=== PATIENT | female | born 1970 | race Caucasian/White ===

== ENCOUNTER 2016-08-06 09:32 | Emergency (ER) | payer BC ==
[2016-08-06 10:47] VITALS: BP 133/79
--- NOTE | 2016-08-06 11:13 | UC ---
Throat Pain/Nasal Carter HPI - HPI Summary HPI Summary: 2 weeks of URI symptoms. Recent worsening in sinus pain/pressure. Bright green drainage. PND. FEels like multiple prior sinusitis episodes. Has had several ENT surgeries. No fever. NO vomiting. Cough is dwindling away, but now headache and facial pain - History of Current Complaint Chief Complaint: UCRespiratory Stated Complaint: SINUSES Time Seen by Provider: 08/06/16 10:56 Hx Obtained From: Patient Hx Last Menstrual Period: 07/12/16 Onset/Duration: Gradual Onset Severity: Moderate Cough: Productive Associated Signs & Symptoms: Positive: Dysphagia, Hoarseness, Sinus Discomfort, Nasal Discharge - Epiglottits Risk Factors Epiglottis Risk Factors: Negative - Allergies/Home Medications Allergies/Adverse Reactions: Allergies Allergy/AdvReac Type Severity Reaction Status Date / Time Amoxicillin Allergy Intermediate Hives Verified 08/06/16 10:38 Cefaclor [From Ceclor] Allergy Intermediate Rash Verified 08/06/16 10:38 Erythromycin Allergy Intermediate Hives Verified 08/06/16 10:38 Penicillins Allergy Intermediate Hives Verified 08/06/16 10:38 Bupropion [From Wellbutrin] Allergy Hives Verified 08/06/16 10:38 Celecoxib [From Celebrex] Allergy Hives Verified 08/06/16 10:38 Home Medications: Home Medications Mometasone NASAL (NF) [Nasonex (NF)] 2 spray NASAL ONCE PRN 08/06/16 [History Confirmed 08/06/16] Naproxen Sodium 440 mg PO BID PRN 08/06/16 [History Confirmed 08/06/16] PMH/Surg Hx/FS Hx/Imm Hx Endocrine History Of: Denies: Diabetes, Thyroid Disease Cardiovascular History Of: Reports: Hypertension Denies: Cardiac Disorders Respiratory History Of: Denies: COPD, Asthma GI/ History Of: Denies: Ulcer Cancer History Of: Denies: Breast Cancer - Surgical History Surgical History: Yes Surgery Procedure, Year, and Place: SINUS SURGERY 20 YEARS AGO, and 01/2013 - Family History Known Family History: Positive: Hypertension - Social History Occupation: Employed Full-time - social media community manager Lives: With Family Alcohol Use: Rare Substance Use Type: None Smoking Status (MU): Never Smoked Tobacco - Immunization History Most Recent Influenza Vaccination: not this season Review of Systems Constitutional: Negative Skin: Negative Eyes: Negative ENT: Sore Throat, Ear Ache, Nasal Discharge Respiratory: Cough - dry Cardiovascular: Negative Gastrointestinal: Negative Genitourinary: Negative Motor: Negative Neurovascular: Negative Musculoskeletal: Negative Neurological: Negative Psychological: Negative All Other Systems Reviewed And Are Negative: Yes Physical Exam Triage Information Reviewed: Yes Appearance: Well-Appearing, No Pain Distress, Well-Nourished Vital Signs: Initial Vital Signs Temp 98.5 F 08/06/16 10:42 Pulse 104 08/06/16 10:42 Resp 16 08/06/16 10:42 BP 133/79 08/06/16 10:42 Pulse Ox 100 08/06/16 10:42 Vital Signs Reviewed: Yes Eye Exam: Normal ENT: Positive: Hearing grossly normal, Pharyngeal erythema, Nasal congestion, TMs normal. Negative: Tonsillar swelling, Tonsillar exudate, Trismus, Muffled/ hoarse voice Neck exam: Normal Respiratory Exam: Normal Respiratory: Positive: Lungs clear, Normal breath sounds, No respiratory distress, No accessory muscle use Cardiovascular Exam: Normal Musculoskeletal Exam: Normal Neurological Exam: Normal Psychological Exam: Normal Skin Exam: Normal Throat Pain/Nasal Course/Dx - Differential Dx/Diagnosis Differential Diagnosis/HQI/PQRI: Pharyngitis, Sinusitis, URI Provider Diagnoses: sinusitis Discharge - Discharge Plan Condition: Stable Disposition: HOME Prescriptions: Cefdinir 300 mg PO BID #20 cap predniSONE TAB* [Deltasone TAB*] 20 mg PO DAILY #11 tab Patient Education Materials: Sinusitis (ED) Referrals: Timbo Morales MD [Primary Care Provider] -
== END 2016-08-06 11:56 | disposition home or self-care (01) ==
LOC: UCCORT 09:32
DX: J32.9 Chronic sinusitis, unspecified (principal); Z88.1 Allergy status to other antibiotic agents; Z88.0 Allergy status to penicillin; Z88.8 Allergy status to other drugs, medicaments and biological substances
CPT/HCPCS: 99212; G0463

== ENCOUNTER 2017-12-03 13:48 | Emergency (ER) | payer BC ==
[2017-12-03 15:37] VITALS: BP 125/79
--- NOTE | 2017-12-03 16:01 | UC ---
Skin Complaint HPI - HPI Summary HPI Summary: Patient was working in her yard just today last night she developed hives very itchy arms and legs she does not have any vesicles that she does have a lot of raised papules that are red on both of her arms and legs - History of Current Complaint Chief Complaint: UCRash Time Seen by Provider: 12/03/17 15:21 Stated Complaint: SKIN COMPLAINT Hx Obtained From: Patient Hx Last Menstrual Period: TODAY ?: No Onset/Duration: Sudden Onset, Lasting Days - 1, Still Present Skin Exposure Onset/Duration: Days Ago - 1 Timing: Constant Onset Severity: Moderate Current Severity: Moderate Location: Diffuse Character: Hives, Redness, Raised Aggravating Factor(s): Nothing Alleviating Factor(s): Other - Took 50 mg Benadryl last night without any relief was unable to sleep at all through the night Associated Signs & Symptoms: Positive: Rash Related History: Possible Reaction to: Environmental Exposure - Allergy/Home Medications Allergies/Adverse Reactions: Allergies Allergy/AdvReac Type Severity Reaction Status Date / Time amoxicillin Allergy Unknown Hives Verified 12/03/17 15:24 bupropion Allergy Unknown Hives Verified 12/03/17 15:24 cefaclor [From Ceclor] Allergy Unknown Hives Verified 12/03/17 15:24 celecoxib [From Celebrex] Allergy Unknown HIVES AND Verified 12/03/17 15:24 CONGESITON erythromycin base Allergy Unknown Hives Verified 12/03/17 15:24 Penicillins Allergy Unknown Hives Verified 12/03/17 15:24 Home Medications: Home Medications Betamethasone Dip 0.05% ON(NF) [Betamethasone Dipr 0.05% OINT(NF)] 1 applic .SEE ORDER 12/03/17 [History] Cetirizine* [ZyrTEC 10 MG TAB*] 10 mg PO DAILY 12/03/17 [History Confirmed 12/03] LevoCETirizine TAB (NF) [Xyzal TAB (NF)] 5 mg PO DAILY 12/03/17 [History Confirmed 12/03/17] Spironolactone TAB* [Aldactone TAB 25 MG*] 25 mg PO DAILY 12/03/17 [History Confirmed 12/03/17] diPHENhydraMINE PO* [Benadryl PO 25 MG TAB*] 25 mg PO Q6H PRN 12/03/17 [History Confirmed 12/03/17] Review of Systems Constitutional: Negative Skin: Rash Eyes: Negative ENT: Negative Respiratory: Negative Cardiovascular: Negative Gastrointestinal: Negative Genitourinary: Negative Motor: Negative Neurovascular: Negative Musculoskeletal: Negative Neurological: Negative Psychological: Negative Is Patient Immunocompromised?: No All Other Systems Reviewed And Are Negative: Yes PMH/Surg Hx/FS Hx/Imm Hx Previously Healthy: No Cardiovascular History: Hypertension - Surgical History Surgical History: Yes Surgery Procedure, Year, and Place: SINUS SURGERY 20 YEARS AGO, and 01/2013 - Family History Known Family History: Positive: Hypertension - Social History Occupation: Employed Full-time Lives: With Family Alcohol Use: Rare Substance Use Type: None Smoking Status (MU): Never Smoked Tobacco - Immunization History Most Recent Influenza Vaccination: not this season Physical Exam Triage Information Reviewed: Yes Appearance: Well-Appearing, No Pain Distress, Well-Nourished Vital Signs: Initial Vital Signs Temp 98.6 F 12/03/17 15:30 Pulse 82 12/03/17 15:30 Resp 18 12/03/17 15:30 BP 125/79 12/03/17 15:30 Pulse Ox 100 12/03/17 15:30 Vital Signs Reviewed: Yes Eye Exam: Normal Eyes: Positive: Conjunctiva Clear ENT Exam: Normal ENT: Positive: Normal ENT inspection, Hearing grossly normal, Pharynx normal, Uvula midline. Negative: Nasal congestion, Tonsillar swelling, Tonsillar exudate, Trismus, Muffled voice, Hoarse voice, Dental tenderness, Sinus tenderness Dental Exam: Normal Neck exam: Normal Neck: Positive: Supple, Nontender, No Lymphadenopathy Respiratory Exam: Normal Respiratory: Positive: Chest non-tender, Lungs clear, Normal breath sounds, No respiratory distress, No accessory muscle use Cardiovascular Exam: Normal Cardiovascular: Positive: RRR, No Murmur, Pulses Normal, Brisk Capillary Refill Musculoskeletal Exam: Normal Musculoskeletal: Positive: Strength Intact, ROM Intact, No Edema Neurological Exam: Normal Neurological: Positive: Alert, Muscle Tone Normal Psychological Exam: Normal Skin: Positive: rashes Course/Dx - Course Course Of Treatment: prednisone, benadryl, cool compress zyrtec follow with pcp prn - Diagnoses Provider Diagnoses: contact dermititis secondary to an enviromental exposure Discharge - Sign-Out/Discharge Documenting (check all that apply): Discharge/Admit/Transfer - Discharge Plan Condition: Stable Disposition: HOME Prescriptions: predniSONE TAB* [Deltasone TAB*] 10 mg PO DAILY #42 tab Patient Education Materials: Diphenhydramine (By mouth), Contact Dermatitis (ED ), Cold Compress or Soak (ED) Referrals: Timbo Morales MD [Primary Care Provider] - If Needed - Billing Disposition and Condition Condition: STABLE Disposition: HOME
== END 2017-12-03 15:57 | disposition home or self-care (01) ==
LOC: UCCORT 13:48
DX: L25.8 Unspecified contact dermatitis due to other agents (principal); Z88.6 Allergy status to analgesic agent; Z88.1 Allergy status to other antibiotic agents; Z88.0 Allergy status to penicillin; I10 Essential (primary) hypertension
CPT/HCPCS: 99212; G0463

== ENCOUNTER 2018-07-21 13:04 | Emergency (ER) | payer BC ==
[2018-07-21 13:48] VITALS: BP 121/72
[2018-07-21 14:04] LABS: Influenza A Molecular POSITIVE (Negative)
--- NOTE | 2018-07-21 14:15 | UC ---
FLU HPI - HPI Summary HPI Summary: Pt presents with c/o fever,chills, body ah=ches, cough and chest pain that began 1 day ago that is wrosening.. Chest pain worsens with exertion and cough. - History of Current Complaint Chief Complaint: UCRespiratory Stated Complaint: FEVER COUGH Time Seen by Provider: 07/21/18 13:25 Hx Obtained From: Patient Hx Last Menstrual Period: 07/02/18 ?: No Onset/Duration: Gradual Onset, Lasting Days, Still Present Severity Currently: Moderate Severity Initially: Severe Pain Intensity: 9 Associated Signs & Symptoms: Positive: Fever, Myalgia, Cough Related Hx: Possible Flu/Infectious Exposure - Risk Factors Influenza Risk Factors: Negative - Allergy/Home Medications Allergies/Adverse Reactions: Allergies Allergy/AdvReac Type Severity Reaction Status Date / Time amoxicillin Allergy Unknown Hives Verified 07/21/18 13:33 bupropion Allergy Unknown Hives Verified 07/21/18 13:33 cefaclor [From Ceclor] Allergy Unknown Hives Verified 07/21/18 13:33 celecoxib [From Celebrex] Allergy Unknown HIVES AND Verified 07/21/18 13:33 CONGESITON erythromycin base Allergy Unknown Hives Verified 07/21/18 13:33 Penicillins Allergy Unknown Hives Verified 07/21/18 13:33 Home Medications: Home Medications Albuterol HFA INHALER* [Ventolin HFA Inhaler*] 1 puff INH PRN 07/21/18 [History] Cyclobenzaprine TAB* [Flexeril 10 MG TAB*] 10 mg PO TID PRN 07/21/18 [History Confirmed 07/21/18] Ibuprofen TAB* [Advil TAB*] 600 mg PO Q6H PRN 07/21/18 [History Confirmed ] guaiFENesin ER TAB [Mucinex*] 1,200 mg PO BID PRN 07/21/18 [History Confirmed ] PMH/Surg Hx/FS Hx/Imm Hx Previously Healthy: Yes - Surgical History Surgical History: Yes Surgery Procedure, Year, and Place: SINUS SURGERY 20 YEARS AGO, and 01/2013 - Family History Known Family History: Positive: Hypertension - Social History Occupation: Employed Full-time Lives: With Family Alcohol Use: Occasionally Substance Use Type: None Smoking Status (MU): Never Smoked Tobacco Have You Smoked in the Last Year: No - Immunization History Most Recent Influenza Vaccination: not this season Review of Systems All Other Systems Reviewed And Are Negative: Yes Constitutional: Positive: Fever, Chills, Fatigue Skin: Positive: Negative Eyes: Positive: Negative ENT: Positive: Sinus Congestion Respiratory: Positive: Shortness Of Breath, Cough Cardiovascular: Positive: Chest Pain Gastrointestinal: Positive: Negative Genitourinary: Positive: Negative Motor: Positive: Negative Neurovascular: Positive: Negative Musculoskeletal: Positive: Myalgia Neurological: Positive: Negative Psychological: Positive: Anxious Is Patient Immunocompromised?: No Physical Exam Triage Information Reviewed: Yes Appearance: Ill-Appearing Vital Signs: Initial Vital Signs Temp 100.9 F 07/21/18 13:39 Pulse 106 07/21/18 13:39 Resp 16 07/21/18 13:39 BP 121/72 07/21/18 13:39 Pulse Ox 98 07/21/18 13:39 Vital Signs Reviewed: Yes Eye Exam: Normal ENT: Positive: Nasal congestion Dental Exam: Normal Neck exam: Normal Respiratory: Positive: Normal breath sounds Cardiovascular: Positive: Tachycardia Abdominal Exam: Normal Musculoskeletal Exam: Normal Neurological Exam: Normal Psychological Exam: Normal Skin Exam: Normal Diagnostics - Laboratory Diagnostic Studies Completed/Ordered: rapid flu: positive for A - EKG Cardiac Rate: Tachycardia Cardiac Rhythm: Other Rhythm: Normal - RBBB Ectopy: None ST Segment: Normal EKG Comparison: Other - none available Flu Course/Dx - Course Course Of Treatment: During PE, pt continued t state that she had chest pain that felt buring, constant, and as though "someone was sitting on her chest". Pt denies previous cardiac disorder or significant fhmh of cardiac disorder/ disease. Pt was recommended to go directly to closest ER for further evaluation and treatment. Pt was offered transport via ambulance but declined. - Differential Dx/Diagnosis Differential Diagnosis/HQI/PQRI: Bronchitis, Influenza Provider Diagnosis: Chest pain, Influenza A, Bronchitis - Physician Notifications Discussed Patient Care With: Apurva Yo - Pt accepted Discharge - Sign-Out/Discharge Documenting (check all that apply): Patient Departure All imaging exams completed and their final reports reviewed: No Studies - Discharge Plan Condition: Stable Disposition: HOME-RECOMMEND TO ED Prescriptions: DOXYcycline CAP(*) [DOXYcycline 100MG CAP(*)] 100 mg PO Q12H #14 cap predniSONE TAB* [Deltasone 20 MG TAB*] 20 mg PO DAILY #4 tab Patient Education Materials: Chest Pain (ED), Influenza (ED), Acute Bronchitis (ED) Referrals: Timbo Morales MD [Primary Care Provider] - If Needed Additional Instructions: PLEASE GO DIRECTLY TO THE CLOSEST EMERGENCY ROOM. YOU HAVE REFUSED TRANSPORTATION VIA AMBULANCE. - Billing Disposition and Condition Condition: STABLE Disposition: Home-Recommend to ED
[2018-07-21] MEDS ORDERED: Acetaminophen TAB* 325 MG PO ONE ×2 (14:20→14:29)
[2018-07-21] MEDS ORDERED: Acetaminophen TAB* 325 MG ONE (14:32)
== END 2018-07-21 14:46 | disposition home health service (06) ==
LOC: UCCORT 13:04
DX: R07.9 Chest pain, unspecified (principal); J40 Bronchitis, not specified as acute or chronic; J09.X2 Influenza due to identified novel influenza A virus with other respiratory manifestations; Z88.0 Allergy status to penicillin; Z88.1 Allergy status to other antibiotic agents; Z88.8 Allergy status to other drugs, medicaments and biological substances
CPT/HCPCS: 93005; 99212; A9270-GY; G0463